=== PATIENT | male | born 1945 | race Two or more races ===

== ENCOUNTER 2018-01-28 13:16 | Inpatient (IN) | payer OTHER ==
[~2018-01-28] VITALS: Ht 172.7 cm; Wt 81.8 kg
[2018-01-28] MEDS ORDERED: ASPIRIN 81 MG TABLET CHEW PO ONE (13:30)
[2018-01-28] MEDS ORDERED: PLEASE ENTER ALLERGIES MC SCH (13:30)
[2018-01-28] MEDS ORDERED: PLEASE ENTER HEIGHT AND WEIGHT MC SCH (13:30)
[2018-01-28] MEDS ORDERED: SODIUM CHLORIDE FLUSH 10ML SYR IVF ONE (13:30)
[2018-01-28] MEDS ORDERED: SODIUM CHLORIDE 0.9% 1,000ML IVBOLUS ONE (13:30)
[2018-01-28] MEDS ORDERED: GABA-827 PO (13:34)
[2018-01-28] MEDS ORDERED: CARV-39 PO (13:34)
[2018-01-28] MEDS ORDERED: LISI2.5T PO (13:34)
[2018-01-28] MEDS ORDERED: METF500T17 PO (13:35)
[2018-01-28] MEDS ORDERED: INSU100C5 SQ-INSULIN (13:36)
[2018-01-28] MEDS ORDERED: ASPI-515 PO (13:36)
[2018-01-28] MEDS ORDERED: ASPIRIN 81 MG TABLET CHEW ONE (13:39)
[2018-01-28 13:49] LABS: BASOPHILS # (AUTO) 0.03 x10^3/uL (0-0.1); BASOPHILS % (AUTO) 0 % (0-1); EOSINOPHILS # (AUTO) 0.16 x10^3/uL (0-0.4); EOSINOPHILS % (AUTO) 2 % (1-7); LYMPHOCYTES # (AUTO) 1.89 x10^3/uL (1-3.4); LYMPHOCYTES % (AUTO) 20 % (22-44); MD NO; MEAN CORPUSCULAR HEMOGLOBIN 29.2 pg (27.5-34.5); MEAN CORPUSCULAR HGB CONC 33.8 g/dL (33.2-36.2); MEAN CORPUSCULAR VOLUME 86.4 fL (81-97); MEAN PLATELET VOLUME 10.5 fL (7.4-10.4); MONOCYTES # (AUTO) 0.92 x10^3/uL (0.2-0.8); MONOCYTES % (AUTO) 10 % (2-9); NEUTROPHILS # (AUTO) 6.71 x10^3/uL (1.8-6.8); NEUTROPHILS % (AUTO) 69 % (42-75); PLATELET COUNT 193 x10^3/uL (130-400); RED BLOOD COUNT 4.77 x10^6/uL (4.38-5.82); RED CELL DISTRIBUTION WIDTH 14.4 % (9.4-14.8)
[2018-01-28 14:00] LABS: INTERNATIONAL NORMALIZED RATIO 0.96 (0.93-1.1)
[2018-01-28 14:01] LABS: ALANINE AMINOTRANSFERASE 19 U/L (12-78); ALBUMIN 2.8 g/dL (3.4-5.0); ANION GAP 10 mmol/L (5-15); CALCIUM 8.2 mg/dL (8.5-10.1); CHLORIDE 105 mmol/L (98-107); CREATININE 1.46 mg/dL (0.7-1.3)
[2018-01-28 14:05] LABS: ALKALINE PHOSPHATASE 69 U/L (45-117); BILIRUBIN,TOTAL 0.4 mg/dL (0.2-1.0); T4 (THYROXINE) 8.7 mcg/dL (4.5-12.1); TOTAL PROTEIN 7.1 g/dL (6.4-8.2)
[2018-01-28 14:11] LABS: THYROID STIMULATING HORMONE 0.483 mIU/L (0.358-3.740)
[2018-01-28] MEDS ORDERED: SODIUM CHLORIDE 0.9% 1,000 ML IV SCH (14:25)
[2018-01-28] MEDS ORDERED: BISACODYL 10 MG SUPP PR PRN (14:30)
[2018-01-28] MEDS ORDERED: ONDANSETRON ODT 4 MG PO PRN (14:30)
[2018-01-28] MEDS ORDERED: DOCUSATE 100 MG CAPSULE PO PRN (14:30)
[2018-01-28] MEDS ORDERED: ONDANSETRON 2MG/ML, 2ML IVPush PRN (14:30)
[2018-01-28] MEDS: HEPARIN 5,000 UNITS/ML, 1ML SQ SCH ×3 (14:30→21:28)
[2018-01-28] MEDS ORDERED: BIVALIRUDIN 250 MG ONE ×2 (15:54→16:54)
[2018-01-28] MEDS ORDERED: LIDOCAINE/PF 1%, 30ML ONE (15:54)
[2018-01-28] MEDS ORDERED: VERAPAMIL 2.5 MG/ML, 2ML ONE (15:54)
[2018-01-28] MEDS ORDERED: TICAGRELOR 90 MG TABLET ONE (15:54)
[2018-01-28] MEDS ORDERED: FENTANYL PF 100 MCG/2ML ONE (15:54)
[2018-01-28] MEDS ORDERED: MIDAZOLAM 1 MG/ML, 5ML ONE (15:54)
[2018-01-28] MEDS ORDERED: HEPARIN 1,000 UNITS/ML, 10ML ONE (15:54)
[2018-01-28 16:00] LABS: HEMOGLOBIN A1C 11.4 % (4.2-6.3)
[2018-01-28] MEDS ORDERED: ASPIRIN 325 MG TABLET EC ONE (16:41)
[2018-01-28] MEDS ORDERED: BIVALIRUDIN 250 MG in DEXTROSE 5% 100 ML IV SCH (16:45)
[2018-01-28] MEDS: SODIUM CHLORIDE 0.9% 1,000 ML IV SCH (18:35)
[2018-01-28] MEDS: INSULIN LISPRO 100 UNITS/ML, PEN SQ-INSULIN SCH ×2 (18:41→21:29)
[2018-01-28] MEDS: GABAPENTIN 400 MG CAPSULE PO SCH ×2 (18:41→21:19)
[2018-01-28] MEDS: MORPHINE SULFATE 4 MG/ML, 1ML IV PRN (19:08)
[2018-01-28] MEDS: ATORVASTATIN 40 MG TABLET PO SCH (21:19)
[2018-01-28] MEDS: TICAGRELOR 90 MG TABLET PO SCH (21:19)
[2018-01-29] MEDS: SODIUM CHLORIDE 0.9% 1,000 ML IV SCH (01:08)
[2018-01-29 01:57] LABS: BASOPHILS # (AUTO) 0.03 x10^3/uL (0-0.1); BASOPHILS % (AUTO) 0 % (0-1); EOSINOPHILS # (AUTO) 0.08 x10^3/uL (0-0.4); EOSINOPHILS % (AUTO) 1 % (1-7); LYMPHOCYTES # (AUTO) 1.24 x10^3/uL (1-3.4); LYMPHOCYTES % (AUTO) 13 % (22-44); MD NO; MEAN CORPUSCULAR HEMOGLOBIN 29.3 pg (27.5-34.5); MEAN CORPUSCULAR HGB CONC 33.5 g/dL (33.2-36.2); MEAN CORPUSCULAR VOLUME 87.5 fL (81-97); MEAN PLATELET VOLUME 9.8 fL (7.4-10.4); MONOCYTES # (AUTO) 0.72 x10^3/uL (0.2-0.8); MONOCYTES % (AUTO) 8 % (2-9); NEUTROPHILS # (AUTO) 7.28 x10^3/uL (1.8-6.8); NEUTROPHILS % (AUTO) 78 % (42-75); PLATELET COUNT 166 x10^3/uL (130-400); RED CELL DISTRIBUTION WIDTH 14.5 % (9.4-14.8)
[2018-01-29 02:08] LABS: ANION GAP 8 mmol/L (5-15); CHLORIDE 108 mmol/L (98-107); CHOLESTEROL, TOTAL 194 mg/dL (140-239); CREATININE 1.18 mg/dL (0.7-1.3); TRIGLYCERIDES 86 mg/dL (50-200); VLDL CHOLESTEROL 17 mg/dL (0-25)
[2018-01-29 02:14] LABS: CHOL/HDL RATIO 3.2; HDL CHOL % 31 % (26-37); HDL CHOLESTEROL (DIRECT) 61 mg/dL (40-60); LDL CHOLESTEROL,CALCULATED 116 mg/dL (54-169); LDL/HDL RATIO 1.9 (0.5-3.0)
[2018-01-29 02:19] LABS: THYROID STIMULATING HORMONE 0.615 mIU/L (0.358-3.740)
[2018-01-29 04:00] VITALS: BP 110/51
[2018-01-29] MEDS: GABAPENTIN 400 MG CAPSULE PO SCH ×4 (05:25→20:40)
[2018-01-29] MEDS: MORPHINE SULFATE 4 MG/ML, 1ML IV PRN ×3 (05:25→15:48)
[2018-01-29] MEDS: INSULIN LISPRO 100 UNITS/ML, PEN SQ-INSULIN SCH ×4 (07:00→20:48)
[2018-01-29] MEDS ORDERED: MAGNESIUM SULFATE PMX 2GM/50ML 50 ML IV ONE (08:00)
[2018-01-29] MEDS: SODIUM CHLORIDE FLUSH 10ML SYR IVF SCH ×2 (09:00→20:13)
[2018-01-29] MEDS ORDERED: ASPIRIN 81 MG TABLET EC PO SCH (09:00)
[2018-01-29] MEDS: TICAGRELOR 90 MG TABLET PO SCH ×2 (09:38→20:40)
[2018-01-29] MEDS: SENNA/DOCUSATE TABLET PO SCH (09:38)
[2018-01-29] MEDS: ASPIRIN 81 MG TABLET EC PO SCH (09:38)
[2018-01-29] MEDS: HEPARIN 5,000 UNITS/ML, 1ML SQ SCH ×3 (15:48→23:56)
[2018-01-29] MEDS: ENALAPRILAT 1.25 MG/ML, 2ML IVPush PRN (18:05)
[2018-01-29] MEDS ORDERED: hydrALAzine 20 MG/ML, 1ML IV PRN (19:30)
[2018-01-29] MEDS: ATORVASTATIN 40 MG TABLET PO SCH (20:40)
[2018-01-30 04:39] VITALS: BP 160/76
[2018-01-30] MEDS: GABAPENTIN 400 MG CAPSULE PO SCH ×4 (06:33→20:30)
[2018-01-30] MEDS: INSULIN LISPRO 100 UNITS/ML, PEN SQ-INSULIN SCH ×4 (06:37→20:32)
[2018-01-30] MEDS: ENALAPRILAT 1.25 MG/ML, 2ML IVPush PRN (07:21)
[2018-01-30] MEDS: SENNA/DOCUSATE TABLET PO SCH (08:41)
[2018-01-30] MEDS: TICAGRELOR 90 MG TABLET PO SCH ×2 (08:42→20:30)
[2018-01-30] MEDS: LISINOPRIL 10 MG TABLET PO SCH ×2 (08:42→20:30)
[2018-01-30] MEDS: ASPIRIN 81 MG TABLET EC PO SCH (08:43)
[2018-01-30] MEDS: SODIUM CHLORIDE FLUSH 10ML SYR IVF SCH ×2 (08:48→20:31)
[2018-01-30] MEDS: ACETAMINOPHEN 325 MG TABLET PO PRN (13:49)
[2018-01-30] MEDS: HEPARIN 5,000 UNITS/ML, 1ML SQ SCH ×2 (14:43→23:18)
[2018-01-30] MEDS: ATORVASTATIN 40 MG TABLET PO SCH (20:30)
[2018-01-31] MEDS: ENALAPRILAT 1.25 MG/ML, 2ML IVPush PRN (02:16)
[2018-01-31 04:26] VITALS: BP 130/59
[2018-01-31] MEDS: GABAPENTIN 400 MG CAPSULE PO SCH ×4 (05:31→21:32)
[2018-01-31] MEDS: ACETAMINOPHEN 325 MG TABLET PO PRN ×2 (05:31→17:23)
[2018-01-31] MEDS: INSULIN LISPRO 100 UNITS/ML, PEN SQ-INSULIN SCH ×4 (09:21→21:38)
[2018-01-31] MEDS: SENNA/DOCUSATE TABLET PO SCH (09:29)
[2018-01-31] MEDS: TICAGRELOR 90 MG TABLET PO SCH ×2 (09:29→21:34)
[2018-01-31] MEDS: LISINOPRIL 10 MG TABLET PO SCH ×2 (09:29→21:33)
[2018-01-31] MEDS: ASPIRIN 81 MG TABLET EC PO SCH (09:29)
[2018-01-31] MEDS: SODIUM CHLORIDE FLUSH 10ML SYR IVF SCH ×2 (09:29→21:32)
[2018-01-31] MEDS: HEPARIN 5,000 UNITS/ML, 1ML SQ SCH ×2 (09:29→17:24)
[2018-01-31] MEDS: ATORVASTATIN 40 MG TABLET PO SCH (21:32)
[2018-02-01 04:41] LABS: ANION GAP 10 mmol/L (5-15); CALCIUM 8.3 mg/dL (8.5-10.1); CHLORIDE 103 mmol/L (98-107)
[2018-02-01 04:42] LABS: CREATININE 1.19 mg/dL (0.7-1.3)
[2018-02-01] MEDS: GABAPENTIN 400 MG CAPSULE PO SCH ×4 (06:35→21:45)
[2018-02-01] MEDS ORDERED: MAGNESIUM SULFATE PMX 4GM/100M 100 ML IV ONE (07:30)
[2018-02-01] MEDS: SODIUM CHLORIDE FLUSH 10ML SYR IVF SCH ×2 (08:20→21:00)
[2018-02-01] MEDS: HEPARIN 5,000 UNITS/ML, 1ML SQ SCH ×3 (08:20→16:01)
[2018-02-01] MEDS: SENNA/DOCUSATE TABLET PO SCH (08:20)
[2018-02-01] MEDS: INSULIN LISPRO 100 UNITS/ML, PEN SQ-INSULIN SCH ×4 (08:20→21:49)
[2018-02-01] MEDS: LISINOPRIL 10 MG TABLET PO SCH ×2 (08:20→21:45)
[2018-02-01] MEDS: TICAGRELOR 90 MG TABLET PO SCH ×2 (08:20→21:45)
[2018-02-01] MEDS: ASPIRIN 81 MG TABLET EC PO SCH (08:20)
[2018-02-01] MEDS: INSULIN GLARGINE 100 UNITS/ML, PEN SQ-INSULIN SCH ×2 (12:06→21:50)
[2018-02-01 14:33] VITALS: BP 149/80
[2018-02-01 19:51] VITALS: BP 164/92
[2018-02-01] MEDS: ATORVASTATIN 40 MG TABLET PO SCH (21:45)
[2018-02-02] MEDS: HEPARIN 5,000 UNITS/ML, 1ML SQ SCH ×3 (00:59→17:00)
[2018-02-02 01:04] VITALS: BP 148/82
[2018-02-02] MEDS: GABAPENTIN 400 MG CAPSULE PO SCH ×4 (06:13→20:50)
[2018-02-02 07:07] VITALS: BP 162/91
[2018-02-02] MEDS: LISINOPRIL 10 MG TABLET PO SCH ×2 (08:56→20:50)
[2018-02-02] MEDS: TICAGRELOR 90 MG TABLET PO SCH ×2 (08:56→20:50)
[2018-02-02] MEDS: SENNA/DOCUSATE TABLET PO SCH (08:56)
[2018-02-02] MEDS: SODIUM CHLORIDE FLUSH 10ML SYR IVF SCH ×2 (08:56→20:50)
[2018-02-02] MEDS: INSULIN LISPRO 100 UNITS/ML, PEN SQ-INSULIN SCH ×4 (08:56→20:49)
[2018-02-02] MEDS: ASPIRIN 81 MG TABLET EC PO SCH (08:56)
[2018-02-02] MEDS: INSULIN GLARGINE 100 UNITS/ML, PEN SQ-INSULIN SCH ×2 (08:57→20:50)
[2018-02-02 12:49] VITALS: BP 170/100
[2018-02-02] MEDS: METOPROLOL TARTRATE 25 MG TABLET PO SCH (18:22)
[2018-02-02 20:00] VITALS: BP 158/97
[2018-02-02] MEDS: ATORVASTATIN 40 MG TABLET PO SCH (20:50)
[2018-02-02] MEDS: ACETAMINOPHEN 325 MG TABLET PO PRN (21:02)
[2018-02-03] MEDS: HEPARIN 5,000 UNITS/ML, 1ML SQ SCH ×2 (00:05→07:58)
[2018-02-03 00:35] VITALS: BP 143/84
[2018-02-03] MEDS: ACETAMINOPHEN 325 MG TABLET PO PRN (06:24)
[2018-02-03] MEDS: GABAPENTIN 400 MG CAPSULE PO SCH ×2 (06:24→10:58)
[2018-02-03] MEDS: METOPROLOL TARTRATE 25 MG TABLET PO SCH (06:25)
[2018-02-03] MEDS: INSULIN LISPRO 100 UNITS/ML, PEN SQ-INSULIN SCH ×2 (07:00→11:01)
[2018-02-03 07:31] VITALS: BP 169/108
[2018-02-03] MEDS: SENNA/DOCUSATE TABLET PO SCH (07:51)
[2018-02-03] MEDS: TICAGRELOR 90 MG TABLET PO SCH (07:55)
[2018-02-03] MEDS: ASPIRIN 81 MG TABLET EC PO SCH (07:55)
[2018-02-03] MEDS: LISINOPRIL 10 MG TABLET PO SCH (07:56)
[2018-02-03] MEDS: SODIUM CHLORIDE FLUSH 10ML SYR IVF SCH (07:59)
[2018-02-03] MEDS: INSULIN GLARGINE 100 UNITS/ML, PEN SQ-INSULIN SCH (11:00)
[2018-02-03 13:55] VITALS: BP 169/101
[2018-02-03] MEDS ORDERED: ATOR40TA78 PO (15:05)
[2018-02-03] MEDS ORDERED: TICA90TA PO (15:05)
[2018-02-03] MEDS ORDERED: LISI-167 PO (15:05)
[2018-02-03] MEDS ORDERED: METO25TA35 PO (15:05)
[2018-02-03] MEDS ORDERED: METF500T PO (15:05)
[2018-02-03] MEDS ORDERED: METF500T17 PO (15:44)
[2018-02-03] MEDS ORDERED: INSU300I SC (15:44)
== END 2018-02-03 17:10 | disposition home health service (06) | DRG 246 ==
LOC: ED 14:07 → EDIP 14:25 → CCU 16:54 → 5SO 02-01 12:37
PROVIDERS: ADMIT Hospitalist; ATTEND Hospitalist
PROC: 027034Z Dilation of Coronary Artery, One Artery with Drug-eluting Intraluminal Device, Percutaneous Approach (ICD-10-PCS; principal; 2018-01-28)
DX: I21.19 ST elevation (STEMI) myocardial infarction involving other coronary artery of inferior wall (principal); N17.0 Acute kidney failure with tubular necrosis; I44.2 Atrioventricular block, complete; E11.22 Type 2 diabetes mellitus with diabetic chronic kidney disease; E11.42 Type 2 diabetes mellitus with diabetic polyneuropathy; E11.65 Type 2 diabetes mellitus with hyperglycemia; E78.5 Hyperlipidemia, unspecified; N18.9 Chronic kidney disease, unspecified; I36.1 Nonrheumatic tricuspid (valve) insufficiency; I12.9 Hypertensive chronic kidney disease with stage 1 through stage 4 chronic kidney disease, or unspecified chronic kidney disease; I25.10 Atherosclerotic heart disease of native coronary artery without angina pectoris; I27.20 Pulmonary hypertension, unspecified; Z79.4 Long term (current) use of insulin; Z87.891 Personal history of nicotine dependence
CPT/HCPCS: 33210; 36415; 71045; 80048; 80053; 80061; 82962; 83036; 83735; 83880; 84100; 84436; 84443; 84484; 85025; 85610; 85730; 87081; 93005; 93306; 93454; 96360; 99156; 99157; C1760; C1769; C1894; G0378; J0583; J1644; J2250; J3010; J3490; Q0162; C1725; C1874; C1887; J1815; J3475; J7030; Q9967

== ENCOUNTER → 2018-03-06 | Outpatient (CLI) | payer OTHER ==
[~2018-03-06] MED LIST: ASPI-515 PO; ATOR40TA78 PO; CARV-39 PO; GABA-827 PO; INSU100C5 SQ-INSULIN; INSU300I SC; LISI-167 PO; LISI2.5T PO; METF500T PO; METF500T17 PO; METO25TA35 PO; TICA90TA PO
== END | disposition home or self-care (01) ==
LOC: CVU 12:58
PROVIDERS: ATTEND Internal Medicine Cardiovascular Disease
DX: I10 Essential (primary) hypertension (principal); I25.10 Atherosclerotic heart disease of native coronary artery without angina pectoris; E78.2 Mixed hyperlipidemia; E11.9 Type 2 diabetes mellitus without complications; Z95.1 Presence of aortocoronary bypass graft
CPT/HCPCS: 93880